=== PATIENT | male | born 1980 | race Hispanic/Latino ===

== ENCOUNTER 2022-07-05 23:12 | Emergency (ER) | payer OTHER ==
[~2022-07-05] VITALS: Ht 177.8 cm; Wt 121.2 kg
[2022-07-05 23:13] VITALS: BP 129/64
[2022-07-05] MEDS ORDERED: ROBI1LIQ9 PO (23:22)
[2022-07-05] MEDS ORDERED: MUCI1TAB18 PO (23:22)
[2022-07-05] MEDS ORDERED: ALBU2.5V10 INH (23:22)
[2022-07-06] MEDS ORDERED: IPRATROPIUM 0.5MG/ALBUTEROL 2.5MG INH SOL UD 3ML (DUONEB) NEB ONE (03:10)
[2022-07-06 03:55] LABS: BASO # 0.1 10^3/uL (0.0-0.2); BASO % 0.6 % (0.0-1.0); EOS # 0.2 10^3/uL (0.0-0.5); EOS % 1.6 % (0.0-3.0); HEMATOCRIT 40.4 % (42.0-52.0); HEMOGLOBIN 13.8 g/dl (13.5-17.5); LYMPH # 1.5 10^3/uL (1.5-5.0); MEAN CORPUSCULAR HEMOGLOBIN 30.5 pg (27.0-33.0); MEAN CORPUSCULAR HGB CONC 34.2 g/dl (32.0-36.5); MEAN CORPUSCULAR VOLUME 89.2 fl (80.0-96.0); MONO # 1.2 10^3/uL (0.0-0.8); MONO % 8.1 % (2.0-8.0); NEUTROPHILS # 12.1 10^3/uL (1.5-8.5); PLATELET COUNT, AUTOMATED 290 10^3/uL (150-450); RED BLOOD COUNT 4.53 10^6/uL (4.30-6.10); WHITE BLOOD COUNT 15.3 10^3/uL (4.0-10.0)
[2022-07-06 04:24] LABS: BLOOD UREA NITROGEN 5 MG/DL (7-18); CARBON DIOXIDE LEVEL 27 MEQ/L (21-32); CHLORIDE LEVEL 104 MEQ/L (98-107); CREATININE FOR GFR 0.96 MG/DL (0.70-1.30); GLOMERULAR FILTRATION RATE > 60.0 (>60); GLUCOSE, FASTING 106 MG/DL (70-100); POTASSIUM SERUM 4.2 MEQ/L (3.5-5.1); SODIUM LEVEL 136 MEQ/L (136-145)
[2022-07-06] MEDS ORDERED: methylPREDNISolone 125MG 2ML VIAL IV ONE (05:00)
[2022-07-06] MEDS ORDERED: BENZONATATE 100MG CAPSULE PO ONE (05:00)
[2022-07-06] MEDS ORDERED: AZITHROMYCIN 250MG TABLET PO ONE (06:00)
[2022-07-06] MEDS ORDERED: ALBU2.5V10 INH ×2 (06:02→06:03)
[2022-07-06] MEDS ORDERED: AZIT-12 PO (06:03)
[2022-07-06] MEDS ORDERED: BENZ200C70 PO (06:03)
== END 2022-07-06 06:17 | disposition home or self-care (01) ==
LOC: M ED 23:12
DX: J20.9 Acute bronchitis, unspecified (principal); E03.9 Hypothyroidism, unspecified; F17.200 Nicotine dependence, unspecified, uncomplicated; F10.10 Alcohol abuse, uncomplicated; Z79.51 Long term (current) use of inhaled steroids; Z79.899 Other long term (current) drug therapy
CPT/HCPCS: 71045; 80048; 85025; 87428; 87486; 87581; 87633; 87798; 94640; 96374; 99284; J2930